=== PATIENT | female | born 1985 | race Caucasian/White ===

== ENCOUNTER 2017-04-16 15:02 | Emergency (ER) | payer SELFPAY ==
[2017-04-16 15:44] LABS: #Basophils 0.1 thou/uL (0.0-0.2); #Eosinphils 0.1 thou/uL (0.0-0.7); #Lymphocytes 2.2 thou/uL (1.20-3.40); #Monocytes 0.5 thou/uL (0.11-0.59); #Neutrophils 4.8 thou/uL (1.40-6.50); %Basophils 0.9 % (0.0-1.0); %Eosinophils 1.6 % (0.0-10.0); %Lymphocytes 28.8 % (21.0-51.0); %Monocytes 6.6 % (0.0-10.0); %Neutrophils 62.1 % (42.0-75.0); Hemoglobin 12.7 g/dL (12.0-16.0); Mean Corpuscular HGB CONC 32.5 g/dL (32.0-36.0); Mean Corpuscular Hemoglobin 28.4 pg (27.0-31.0); Mean Corpuscular Volume 87.2 fl (81.0-99.0); Mean Platelet Volume 6.4 fL (7.4-10.4); Platelet Count 672 thou/uL (130-400); RBC Distribution Width 13.5 % (11.5-14.5); Red Blood Cell (RBC) Count 4.46 mill/uL (4.20-5.40); White Blood Cell (WBC) Count 7.8 thou/uL (4.8-10.8)
[2017-04-16] MEDS ORDERED: Morphine Sulfate 2 MG/ML SYRINGE ONE (15:49)
[2017-04-16] MEDS ORDERED: Ondansetron HCl/PF 4 MG/2 ML Vial ONE (15:52)
[2017-04-16 16:17] LABS: ALT (SGPT) 36 U/L (8-55); AST (SGOT) 71 U/L (5-34); Albumin 4.4 g/dL (3.5-5.0); Alkaline Phosphatase 354 U/L (40-150); Anion Gap 17 mmol/L (10-20); BUN (Urea Nitrogen) 8 mg/dL (7.0-18.7); Bilirubin, Total 0.7 mg/dL (0.2-1.2); Calc. Creatinine Clearance 0 mL/min (70-130); Calcium 9.8 mg/dL (7.8-10.44); Carbon Dioxide 24 mmol/L (22-29); Chloride 103 mmol/L (98-107); Estimated GFR-MDRD 89; Globulin 3.6 g/dL (2.4-3.5); Glucose 96 mg/dL (70-105); Lipase 96 U/L (8-78); Potassium 3.8 mmol/L (3.5-5.1); Sodium 140 mmol/L (136-145)
[2017-04-16 16:18] LABS: Troponin I Less than 0.010 ng/mL (< 0.028)
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
[2017-04-16] MEDS ORDERED: Fentanyl 100 MCG/2 ML VIAL ONE ×2 (16:27→17:07)
[2017-04-16] MEDS ORDERED: Lidocaine Viscous Sol 2% 15 ml UD Cup ONE (16:44)
[2017-04-16] MEDS ORDERED: Mag-Al Plus 1200 MG/1200 MG/120 MG/30 ML UDCUP ONE (16:44)
[2017-04-16 17:13] LABS: Bilirubin Negative (Negative); Blood, Urine Trace (Negative); Clarity Clear (Clear); Glucose, Urine (Dipstick) Negative (Negative); Leukocyte Trace (Negative); Nitrite Negative (Negative); Protein, Urine (Dipstick) Negative (Neg-Trace)
[2017-04-16 17:15] LABS: Bacteria/HPF Rare-Few HPF (None Seen); Pregnancy Test - Urine (BHCG) Negative (NEGATIVE); Pregu Control Background? CLEAR/WHITE (CLR/WHITE); Pregu Control Bar Appear? YES (CONTROL BAR); RBC/HPF 0-3 HPF (0-3); WBC/HPF 0-3 HPF (0-3)
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
[2017-04-16] MEDS ORDERED: Sodium Chloride 0.9% 1,000 ML ONE (19:08)
== END 2017-04-16 19:17 | disposition short-term general hospital (02) ==
LOC: NAV ERS 15:02
DX: R07.2 Precordial pain (principal); D68.2 Hereditary deficiency of other clotting factors; F41.9 Anxiety disorder, unspecified; F32.9 Major depressive disorder, single episode, unspecified
CPT/HCPCS: 36415; 71010; 71275; 80053; 81003; 81015; 81025; 83690; 84484; 85025; 85379; 93005; 96374; 96375; 96376; J1170; J2270; J2405; J3010; J7050

== ENCOUNTER 2017-05-01 20:52 | Emergency (ER) | payer SELFPAY ==
[2017-05-01] MEDS ORDERED: Promethazine HCl 25 MG/ML VIAL ONE (21:33)
[2017-05-01] MEDS ORDERED: Sodium Chloride 0.9% 1,000 ML ONE (21:33)
[2017-05-01] MEDS ORDERED: diphenhydrAMINE HCl 50 MG/ML 1 ML VIAL ONE (21:33)
[2017-05-01] MEDS ORDERED: Ketorolac Tromethamine 30 MG/ML VIAL ONE (21:33)
== END 2017-05-01 22:53 | disposition home or self-care (01) ==
LOC: NAV ERS 20:52
DX: R51 Headache (principal); R03.0 Elevated blood-pressure reading, without diagnosis of hypertension; F41.9 Anxiety disorder, unspecified; F32.9 Major depressive disorder, single episode, unspecified
CPT/HCPCS: 96365; 96375; J1200; J1885; J2550; J7050

== ENCOUNTER 2017-12-02 15:21 | Emergency (ER) | payer SELFPAY ==
[2017-12-02] MEDS ORDERED: Ziprasidone 20 MG VIAL ONE (16:09)
[2017-12-02] MEDS ORDERED: OLANZapine 5 MG TAB ONE (16:09)
[2017-12-02] MEDS ORDERED: Sterile Water 10 ML ONE (16:10)
== END 2017-12-02 17:06 | disposition home or self-care (01) ==
LOC: NAV ERS 15:21
DX: F15.93 Other stimulant use, unspecified with withdrawal (principal); F41.9 Anxiety disorder, unspecified; F32.9 Major depressive disorder, single episode, unspecified; F17.210 Nicotine dependence, cigarettes, uncomplicated
CPT/HCPCS: 96372; A4216; J3486

== ENCOUNTER 2018-05-25 11:36 | Emergency (ER) | payer SELFPAY ==
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
[2018-05-25] MEDS ORDERED: Ketorolac Tromethamine 60 MG/2 ML VIAL ONE (12:16)
== END 2018-05-25 12:42 | disposition home or self-care (01) ==
LOC: NAV ERS 11:36
DX: S60.211A Contusion of right wrist, initial encounter (principal); S50.11XA Contusion of right forearm, initial encounter; Y04.1XXA Assault by human bite, initial encounter; F41.9 Anxiety disorder, unspecified; F32.9 Major depressive disorder, single episode, unspecified; F17.210 Nicotine dependence, cigarettes, uncomplicated
CPT/HCPCS: 96372; J1885

== ENCOUNTER 2024-10-10 13:47 | Emergency (ER) | payer SELFPAY | END 2024-10-10 14:34 | disposition home or self-care (01) | LOC: NAV ERS 13:47 | DX: F41.8 Other specified anxiety disorders (principal); F17.210 Nicotine dependence, cigarettes, uncomplicated; D68.2 Hereditary deficiency of other clotting factors; Z76.0 Encounter for issue of repeat prescription; Z79.899 Other long term (current) drug therapy | CPT/HCPCS: 99283 ==

== ENCOUNTER 2024-10-13 00:23 | Emergency (ER) | payer SELFPAY ==
[2024-10-13] MEDS ORDERED: Sodium Chloride 0.9% 1,000 ML ONE ×2 (00:33→01:37)
[2024-10-13 00:39] LABS: #Basophils 0.1 thou/uL (0.0-0.2); #Eosinophils 0.1 thou/uL (0.0-0.7); #Lymphocytes 3.2 thou/uL (1.20-3.40); #Monocytes 0.5 thou/uL (0.11-0.59); %Basophils 1.1 % (0.0-1.0); %Eosinophils 1.7 % (0.0-10.0); %Lymphocytes 46.6 % (21.0-51.0); %Monocytes 7.2 % (0.0-10.0); %Neutrophils 43.3 % (42.0-75.0); Hemoglobin 11.4 g/dL (12.0-16.0); Mean Corpuscular HGB CONC 31.8 g/dL (32.0-36.0); Mean Corpuscular Hemoglobin 26.6 pg (27.0-31.0); Mean Corpuscular Volume 83.6 fl (78.0-98.0); Platelet Count 315 10x3/uL (130-400); RBC Distribution Width 12.6 % (11.5-14.5); White Blood Cell (WBC) Count 6.9 10x3/uL (4.8-10.8)
[2024-10-13 00:57] LABS: ALT (SGPT) 18 U/L (Less than 34); Albumin 4.1 g/dL (3.1-4.5); Alkaline Phosphatase 69 U/L (40-110); Anion Gap 17 mmol/L (10-20); BUN (Urea Nitrogen) 8 mg/dL (7.0-18.7); Bilirubin, Total 0.2 mg/dL (0.3-1.2); Calc. Creatinine Clearance 0 mL/min (70-130); Calcium 9.3 mg/dL (7.8-10.44); Carbon Dioxide 20 mmol/L (22-29); Chloride 107 mmol/L (98-107); Estimated GFR 84; Globulin 3.3 g/dL (2.4-3.5); Glucose 113 mg/dL (70-105); Potassium 3.6 mmol/L (3.5-5.1); Protein, Total 7.4 g/dL (6.0-8.3); Sodium 140 mmol/L (136-145)
[2024-10-13 00:59] LABS: Troponin I Less than 0.010 ng/mL (< 0.028)
[2024-10-13] MEDS ORDERED: Lorazepam 2 MG/ML VIAL ONE ×2 (01:00→01:37)
[2024-10-13 01:02] LABS: AST (SGOT) 30 U/L (11-34)
[2024-10-13 01:03] LABS: Acetaminophen Less than 10 mcg/mL (Less than 10); Alcohol Less than 10.0 mg/dL (Less than 10); Salicylate Less than 8.0 mg/dL (Less than 8.0)
[2024-10-13 01:30] LABS: Amphetamine Not Detected (NotDetected); Barbiturates Screen Not Detected (NotDetected); Benzodiazepine Screen Not Detected (NotDetected); Cocaine Metabolite Screen Not Detected (NotDetected); Methadone Not Detected (NotDetected); Methamphetamine Not Detected (NotDetected); Opiate Screen Not Detected (NotDetected); Oxycodone Screen Not Detected (NotDetected); Phencyclidine (PCP) Not Detected (NotDetected); THC/Cannabinoid Screen Not Detected (NotDetected); Tricyclic Screen Detected (NotDetected)
[2024-10-13] MEDS ORDERED: Ketorolac Tromethamine 30 MG (1 mL) VIAL ONE (02:06)
[2024-10-13 02:09] LABS: BHCG - Serum Negative (NEGATIVE); Pregs Control Bar Appear? YES (CONTROL BAR)
[2024-10-13] MEDS ORDERED: Aspirin Chewable 81 MG TAB ONE (02:43)
[2024-10-13 03:12] LABS: Troponin I Less than 0.010 ng/mL (< 0.028)
== END 2024-10-13 04:51 | disposition short-term general hospital (02) ==
LOC: NAV ERS 00:23
DX: R07.89 Other chest pain (principal); R00.0 Tachycardia, unspecified; E03.9 Hypothyroidism, unspecified; Z79.899 Other long term (current) drug therapy
CPT/HCPCS: 71045; 80053; 80306; 80307; 84443; 84484; 84703; 85025; 85379; 93005; 94760; 96361; 96374; 96375; J1885; J2060; J7030

== ENCOUNTER 2025-01-09 15:06 | Emergency (ER) | payer SELFPAY | END 2025-01-09 15:41 | disposition home or self-care (01) | LOC: NAV ERS 15:06 | DX: L03.317 Cellulitis of buttock (principal); E03.9 Hypothyroidism, unspecified; Z79.890 Hormone replacement therapy | CPT/HCPCS: 99282 ==

== ENCOUNTER 2025-04-08 16:11 | Emergency (ER) | payer SELFPAY ==
[2025-04-08] MEDS ORDERED: diphenhydrAMINE 50 MG/ML VIAL ONE (16:57)
[2025-04-08] MEDS ORDERED: Ketorolac Tromethamine 30 MG (1 mL) VIAL ONE (16:57)
[2025-04-08] MEDS ORDERED: Ondansetron PF 4 MG/2 ML Vial ONE (18:03)
== END 2025-04-08 18:45 | disposition home or self-care (01) ==
LOC: NAV ERS 16:11
DX: G43.909 Migraine, unspecified, not intractable, without status migrainosus (principal); F41.9 Anxiety disorder, unspecified; E03.9 Hypothyroidism, unspecified; Z79.890 Hormone replacement therapy
CPT/HCPCS: 93005; 96374; 96375; J1200; J1885; J2060; J2405; J2550; J7030

== ENCOUNTER 2025-05-07 19:18 | Emergency (ER) | payer SELFPAY | END 2025-05-07 20:51 | disposition home or self-care (01) | LOC: NAV ERS 19:18 | DX: L02.414 Cutaneous abscess of left upper limb (principal); M70.22 Olecranon bursitis, left elbow; E03.9 Hypothyroidism, unspecified; Z79.890 Hormone replacement therapy | CPT/HCPCS: 99283 ==

== ENCOUNTER 2025-06-09 19:43 | Emergency (ER) | payer SELFPAY ==
[2025-06-09 20:27] LABS: #Basophils 0.0 thou/uL (0.0-0.2); #Eosinophils 0.2 thou/uL (0.0-0.7); #Lymphocytes 2.3 thou/uL (1.20-3.40); #Monocytes 0.6 thou/uL (0.11-0.59); #Neutrophils 3.8 thou/uL (1.40-6.50); %Basophils 0.1 % (0.0-1.0); %Eosinophils 2.3 % (0.0-10.0); %Lymphocytes 33.4 % (21.0-51.0); %Monocytes 8.5 % (0.0-10.0); %Neutrophils 55.7 % (42.0-75.0); Hematocrit 33.5 % (36.0-47.0); Hemoglobin 11.5 g/dL (12.0-16.0); Mean Corpuscular Hemoglobin 28.0 pg (27.0-31.0); Mean Corpuscular Volume 81.2 fl (78.0-98.0); Platelet Count 368 10x3/uL (130-400); Red Blood Cell (RBC) Count 4.12 mill/uL (4.20-5.40); White Blood Cell (WBC) Count 6.9 10x3/uL (4.8-10.8)
[2025-06-09 20:42] LABS: Anion Gap 13 mmol/L (10-20); BUN (Urea Nitrogen) 8 mg/dL (7.0-18.7); Calc. Creatinine Clearance 0 mL/min (70-130); Calcium 8.8 mg/dL (7.8-10.44); Carbon Dioxide 25 mmol/L (22-29); Chloride 107 mmol/L (98-107); Glucose 103 mg/dL (70-105); Potassium 3.7 mmol/L (3.5-5.1); Sodium 141 mmol/L (136-145)
== END 2025-06-09 21:15 | disposition home or self-care (01) ==
LOC: NAV ERS 19:43
DX: R20.2 Paresthesia of skin (principal); M79.641 Pain in right hand; M79.672 Pain in left foot; M54.2 Cervicalgia; F41.9 Anxiety disorder, unspecified; R29.700 NIHSS score 0
CPT/HCPCS: 80048; 85025; 99284

== ENCOUNTER 2025-06-20 23:08 | Emergency (ER) | payer SELFPAY ==
[2025-06-20] MEDS ORDERED: Ondansetron PF 4 MG/2 ML Vial ONE (23:27)
[2025-06-21 00:03] LABS: #Basophils 0.0 thou/uL (0.0-0.2); #Eosinophils 0.1 thou/uL (0.0-0.7); #Lymphocytes 1.5 thou/uL (1.20-3.40); #Monocytes 0.4 thou/uL (0.11-0.59); #Neutrophils 4.3 thou/uL (1.40-6.50); %Basophils 0.4 % (0.0-1.0); %Eosinophils 0.9 % (0.0-10.0); %Lymphocytes 23.6 % (21.0-51.0); %Monocytes 5.7 % (0.0-10.0); %Neutrophils 69.5 % (42.0-75.0); Hematocrit 35.5 % (36.0-47.0); Hemoglobin 12.4 g/dL (12.0-16.0); Mean Corpuscular Hemoglobin 28.2 pg (27.0-31.0); Mean Corpuscular Volume 80.8 fl (78.0-98.0); Platelet Count 341 10x3/uL (130-400); Red Blood Cell (RBC) Count 4.39 mill/uL (4.20-5.40); White Blood Cell (WBC) Count 6.2 10x3/uL (4.8-10.8)
[2025-06-21 00:08] LABS: ALT (SGPT) 16 U/L (Less than 34); AST (SGOT) 24 U/L (11-34); Albumin 4.5 g/dL (3.1-4.5); Alkaline Phosphatase 85 U/L (40-110); Anion Gap 15 mmol/L (10-20); BUN (Urea Nitrogen) 13 mg/dL (7.0-18.7); Bilirubin, Total 0.2 mg/dL (0.3-1.2); Calc. Creatinine Clearance 0 mL/min (70-130); Calcium 9.2 mg/dL (7.8-10.44); Carbon Dioxide 22 mmol/L (22-29); Chloride 107 mmol/L (98-107); Globulin 3.1 g/dL (2.4-3.5); Glucose 79 mg/dL (70-105); Potassium 3.9 mmol/L (3.5-5.1); Sodium 140 mmol/L (136-145)
[2025-06-21 00:09] LABS: Troponin I Less than 0.010 ng/mL (< 0.028)
[2025-06-21 01:46] LABS: Troponin I Less than 0.010 ng/mL (< 0.028)
== END 2025-06-21 02:00 | disposition home or self-care (01) ==
LOC: NAV ERS 23:08
DX: F41.9 Anxiety disorder, unspecified (principal); F17.290 Nicotine dependence, other tobacco product, uncomplicated
CPT/HCPCS: 71045; 80053; 84484; 85025; 93005; 96374; 96375; 96376; J2060; J2405; J7030